=== PATIENT | female | born 1995 | race Caucasian/White ===

== ENCOUNTER 2024-01-19 13:28 | Outpatient (AMB) | payer OTHER, SELFPAY ==
--- NOTE | 2024-01-19 13:31 | A.OFFPC_ITS ---
Vital Signs 01/19/24 13:32 Height 6 ft 1 in Weight 190 lb BMI 25.1 BP 124/80 Blood Pressure Location Lt brachial Position Sitting Pulse 90 Pulse Source Pulse Oximeter Pulse Oximetry (%) 98 Oxygen Delivery Method Room Air Intake Visit Reasons: establish care, hormone therapy Lathe Machinist Required: No Allergies oxycodone Adverse Reaction (Intermediate, Verified 01/19/24 13:50) Nausea and Vomiting Medication List - Last Reconciled 01/19/24 by Sherrie Zafar PA-C bicalutamide 50 mg PO DAILY estradiol 2 mg PO DAILY Tobacco use date assessed: 01/19/24 Dental Screening Dental Screen Date: 01/19/24 Did you have a dental visit in the last 12 months?: Yes Did you have a dental problem in the last 6 months where you did not have access to dental care?: No Was dental information given to patient?: Patient has dentist HPI establish care, hormone therapy HPI Details 28-year-old assigned male at trans itioning to female coming to the office with the 1st time. Patient is not known to [facility]. Patient was previously seen by [facility] in [place] last seen about 3 months ago. She is on hormonal therapy for gender dysphoria managed previously by her primary care and has labs drawn every 6 months. She has been complaining of back pain and has been evaluated by her previous PCP and sent for x-rays. [facility] Surgical History (Updated 01/19/24 @ 13:54 by Sherrie Zafar PA-C) Hx of appendectomy Social History Housing: Apartment Patient Tobacco Use Status: Never used Tobacco e-Cigarette/Vaping Use: Currently Using service: No Cognitive needs: No Hearing needs: No Vision needs: No Questionnaire PHQ-9 Over the last 2 weeks, how often have you been bothered by any of the following problems? 1. Little interest or pleasure in doing things: not at all 2. Feeling down, depressed, or hopeless: not at all 3. Trouble falling or staying asleep, or sleeping too much: not at all 4. Feeling tired or having little energy: not at all 5. Poor appetite or overeating: not at all 6. Feeling bad about yourself - or that you are a failure or have let yourself or your family down: not at all 7. Trouble concentrating on things, such as reading the newspaper or watching television: not at all 8. Moving or speaking so slowly that other people could have noticed. Or the opposite - being so fidgety or restless that you have been moving around a lot more than usual: not at all 9. Thoughts that you would be better off or of hurting yourself in some way: not at all Total score: 0 Depression Screening Interpretation: Negative Depression Screening Done: Yes 18230 - PHQ-9 Billing: Yes Source: Developed by Drs. Renzo Greco, Daniella Khan, Diaz Espitia and colleagues, with an educational evangelina from [employer]. Thrive Questionnaire Date Thrive assessed: 01/16/24 I am a: Patient What is your living situation today?: I have a steady place to live Within the past 12 months, did the food you bought not last and you didn't have the money to get more?: Sometimes True Within the past 12 months, did you worry whether your food would run out before you got money to buy more?: Sometimes True Do you have trouble paying for medicines?: No Do you have trouble getting transportation to medical appointments?: Yes Do you have trouble paying your heating and electricity bill?: Yes Do you have trouble taking care of your child, family member or friend?: No Do you have trouble with day-to-day activities such as bathing, preparing meals, shopping, managing finances, etc.?: No Are you currently unemployed and looking for a job?: No Are you interested in more education?: No THRIVE Score: 4 AUDIT C Alcohol Use Questionnaire (AUDIT-C) 1. How often do you have a drink containing alcohol?: Monthly or less 2. How many drinks containing alcohol do you have on a typical day when you are drinking?: 1 or 2 3. How often do you have six or more drinks on one occasion?: Never Total Score: 1 MAT-7 AMB Questionnaire MAT-7 Date MAT - 7 assessed: 01/19/24 Feeling nervous, anxious, or on edge: 1 = Several days Not being able to stop or control worryin = Several days Worrying too much about different things: 1 = Several days Trouble relaxin = Several days Being so restless that it is hard to sit still: 1 = Several days Becoming easily annoyed or irritable: 1 = Several days Feeling afraid as if something awful might happen: 1 = Several days Total MAT-7 score (0-4 normal; 5-9 mild; 10-14 moderate; 15-21 severe): 7 Source: Developed by Drs. Renzo Greco, Daniella Khan, Diaz Espitia and colleagues, with an educational evangelina from [employer]. MAT-7 Assessment Billing MAT-7 Assessment Tool: MAT-7 Assessment 30698 Review of Systems Const Denies body aches, Denies fatigue, Denies fever(s), Denies frequent falls, Denies headache(s) and Denies weakness Eyes Reports no additional complaints and Denies change in vision ENT Denies dysphagia, Denies dizziness, Denies facial pain, Denies headache(s), Denies nasal congestion and Denies odynophagia Card Denies chest pain, Denies syncope, Denies irregular heart rhythm, Denies leg corby ma, Denies lightheadedness and Denies dyspnea Resp Denies cough and Denies dyspnea GI Denies constipation, Denies dysphagia, Denies dyspepsia, Denies diarrhea, Denies nausea, Denies odynophagia and Denies vomiting Denies urinary frequency, Denies dysuria, Denies urinary hesitancy and Denies urinary urgency Musc Reports abnormal gait, Reports back pain and Denies myalgias Skin/Breast Reports system reviewed and no additional complaints, except as documented Neuro Reports abnormal gait, Denies dizziness, Denies syncope, Denies frequent falls, Denies headache(s) and Denies weakness Psych Reports no additional complaints Endo Denies fatigue Physical exam (Primary Care) Vital Signs: Last Vital Signs Pulse 90 01/19/24 13:32 BP 124/80 01/19/24 13:32 Pulse Ox 98 01/19/24 13:32 Oxygen Delivery Method Room Air 01/19/24 13:32 BMI result Body Mass Index 25.1 Tobacco/Smoking Status: Tobacco use Status Tobacco use date assessed 01/19/24 01/19/24 13:32 Patient Tobacco Use Status Never used Tobacco 01/19/24 13:32 e-Cigarette/Vaping Use Currently Using 01/19/24 13:44 PHQ-9: PHQ-9 Score PHQ-9: Total score 0 01/19/24 13:44 Depression Screening Interpretation: Negative Thrive Assessment: Date of Thrive Assessment Date Thrive assessed 01/16/24 01/19/24 13:32 Const General: cooperative, healthy appearing, comfortable and no acute distress Orientation/consciousness: patient oriented x3 HENMT Head: Yes normocephalic Ears: hearing grossly normal bilaterally, external ears normal, TM's normal bilaterally and EAC's normal General nose exam: Normal external nose present Face and sinus: Yes normal facial exam and Yes sinuses nontender Mouth: Normal oral and palatal mucosa present and tongue normal Throat: Yes posterior oropharynx normal Eyes General: appearance normal, both eyes and all related structures Conjunctivae: conjunctivae normal Pupils: Equal, round and reactive pupils present EOM: EOMs intact bilaterally and No Nystagmus present Neck Neck: Yes normal visual inspection, Yes full ROM and Yes no lymphadenopathy Chest Chest palpation & inspection: normal inspection of the chest Resp Effort & Inspection: normal respiratory effort Auscultation: clear to auscultation bilaterally, no crackles, no rales, no rhonchi, no wheezes and breath sounds present Cardio Rate: regular rate Rhythm: regular rhythm Peripheral pulses: radial pulses present and dorsalis pedis present GI Inspection: Yes normal to inspection and No Abdominal wall edema Palpation (GI): Soft to palpation, not firm and nontender Auscultation: normal bowel sounds Rectal Exam - Female: deferred General: Yes no CVA tenderness Back/Spine/Pelvis Back: no CVA tenderness Skin General skin exam: no rashes or lesions noted Neuro General: patient oriented x3 Cranial nerves: Yes Equal, round and reactive pupils present, Yes Midline tongue present, Yes Ability to bilaterally elevate shoulders present and No Nystagmus present Gait exam (Neuro): Normal gait present Extrem General: Yes normal to inspection, Yes full ROM, No no pedal edema and No edema Psych Speech and movement: Normal speech and movement present Affect: normal affect Insight: Good insight present (Psych) Judgement: Good judgement present (Psych) Coding Level of Care Code New Pt Prev Care 18-39yr(23257 Diagnoses Back pain M54.9 Generalized anxiety disorder F41.1 Gender dysphoria F64.9 Cerebral palsy G80.9 Annual physical exam Z00.00 Additional Codes MAT-7 Assessment Billing - MAT-7 Assessment Tool: MAT-7 Assessment 98902 ([id number]) Assessment & Plan Assessment & Plan (1) Back pain: Code(s): M54.9 - Dorsalgia, unspecified Category: Medical Plan: Complaining of low back pain improves with stretching x-rays were ordered by primary care and have not yet been completed. Advised patient to follow up if x-ray orders are not active. (2) Generalized anxiety disorder: Code(s): F41.1 - Generalized anxiety disorder Category: Medical Plan: Referral placed for counseling today. Declines any medication at this time. (3) Gender dysphoria: Code(s): F64.9 - Gender identity disorder, unspecified Category: Medical Plan: Patient currently on estradiol for hormone replacement and bicalutamide for testosterone suppression. Referral placed for endocrinology for further management and supervision of these medications. (4) Cerebral palsy: Code(s): G80.9 - Cerebral palsy, unspecified Category: Medical Plan: Patient reports a history of cerebral palsy is not followed by neurologist and reports an ataxic gait. (5) Annual physical exam: Code(s): Z00.00 - Encounter for general adult medical examination without abnormal findings Category: Medical Plan: Patient is up-to-date on all recommended routine screenings and vaccinations for her age. Ordered for updated blood work. Follow up in 6 months for review of medications. Plan This note was constructed using voice recognition software. While every effort has been made to ensure accuracy and clinical medical transcriptionist, still areas may have been included sometimes these areas may affect the content or meeting of the given symptoms. Total time spent caring for the patient today was 30 minutes. This includes time spent before the visit reviewing the chart, time spent during the visit, and time spent after the visit and documentation. Orders: Orders Complete Blood Count Auto Diff Today Z00.00 - Encounter for general adult medical examination without abnormal findings Comprehensive Met. Panel Today Z00.00 - Encounter for general adult medical examination without abnormal findings TSH reflex Free T4 Today Z00.00 - Encounter for general adult medical examination without abnormal findings Vitamin B12 and Folate Today Z00.00 - Encounter for general adult medical examination without abnormal findings Free T4 (Free Thyroxine) Today Z00.00 - Encounter for general adult medical examination without abnormal findings Vitamin D 25-OH (D2 and D3) Today Z00.00 - Encounter for general adult medical examination without abnormal findings Referrals Counseling Referral F41.1 - Generalized anxiety disorder Endocrinology Referral F64.9 - Gender identity disorder, unspecified
[2024-01-19 13:32] VITALS: BP 124/80; PULSE 90; O2SAT 98; BMI 25.1
== END 2024-01-19 14:09 | disposition home or self-care (01) ==
DX: Z00.00 Encounter for general adult medical examination without abnormal findings (principal); G80.9 Cerebral palsy, unspecified; M54.9 Dorsalgia, unspecified; F41.1 Generalized anxiety disorder; F64.9 Gender identity disorder, unspecified

== ENCOUNTER → 2024-01-19 13:28 | Outpatient (BNVA) | payer OTHER, SELFPAY | DX: Z00.01 Encounter for general adult medical examination with abnormal findings (principal); M54.9 Dorsalgia, unspecified; F41.1 Generalized anxiety disorder; F64.9 Gender identity disorder, unspecified; G80.9 Cerebral palsy, unspecified | CPT/HCPCS: 96127; 99385 ==